=== PATIENT | female | born 1965 | race Caucasian/White ===

== ENCOUNTER 2021-11-01 03:09 | Inpatient (IN) | payer MEDICARE, MEDICAID ==
[~2021-11-01] VITALS: Ht 160 cm; Wt 52.6 kg
[2021-11-01] MEDS ORDERED: TRANEXAMIC ACID 1,000 MG/10 ML IV NR (04:00)
[2021-11-01 05:02] LABS: BASOPHILS % 0.4 % (0.0-2.0); EOSINOPHILS % 2.5 % (0.0-5.0); HEMATOCRIT. 24.6 % (36.0-48.0); HEMOGLOBIN. 8.1 g/dL (12.0-16.0); LYMPHOCYTES % 8.4 % (20.0-50.0); MEAN CORPUSCULAR HEMOGLOBIN 32.1 pg (28.0-32.0); MEAN CORPUSCULAR VOLUME 97.6 fL (81.0-99.0); MEAN PLATELET VOLUME 8.8 fl (7.4-10.4); MONOCYTES % 9.8 % (2.0-8.0); NEUTROPHILS % 78.9 % (40.0-76.0); PLATELET 118 x1000/uL (130-400); RED BLOOD CELL COUNT 2.52 mill/uL (4.2-5.4); RED CELL DISTRIBUTION WIDTH 15.6 % (11.6-14.6)
[2021-11-01 05:08] LABS: CHLORIDE 102 mEq/L (98-107)
[2021-11-01 05:21] LABS: INR 1.2; PARTIAL THROMBOPLASTIN TIME 25.5 sec (23.4-31.0)
[2021-11-01] MEDS ORDERED: ONDANSETRON HCL 4MG/2ML INJ IV PRN (10:15)
[2021-11-01 12:55] VITALS: BP 143/73
[2021-11-01] MEDS: SODIUM CHLORIDE 0.9% INJ 3ML FLUSH IVF SCH ×3 (15:14→22:31)
[2021-11-01 16:00] VITALS: BP 156/87
[2021-11-01 20:00] VITALS: BP 137/72
[2021-11-01] MEDS: EPOETIN ALFA-EPBX 4,000 UNIT/ML VIAL SUBCUT SCH (21:00)
[2021-11-02] VITALS (18 sets, daily range): BP systolic 121–163; BP diastolic 66–95
[2021-11-02 06:50] LABS: BASOPHILS % 0.5 % (0.0-2.0); EOSINOPHILS % 2.8 % (0.0-5.0); LYMPHOCYTES % 13.7 % (20.0-50.0); MEAN CORPUSCULAR HEMOGLOBIN 31.9 pg (28.0-32.0); MEAN PLATELET VOLUME 7.9 fl (7.4-10.4); MONOCYTES % 12.8 % (2.0-8.0); NEUTROPHILS % 70.2 % (40.0-76.0); PLATELET 102 x1000/uL (130-400); RED BLOOD CELL COUNT 1.88 mill/uL (4.2-5.4); RED CELL DISTRIBUTION WIDTH 15.5 % (11.6-14.6)
[2021-11-02 07:50] LABS: HEMATOCRIT. 18.4 % (36.0-48.0)
[2021-11-02 07:57] LABS: PHOSPHORUS 7.6 mg/dL (2.5-4.9)
[2021-11-02] MEDS: FOLIC ACID/VITAMIN B COMP W-C TABLET PO SCH (09:00)
[2021-11-02] MEDS: SODIUM CHLORIDE 0.9% INJ 3ML FLUSH IVF SCH ×2 (14:00→21:19)
[2021-11-02] MEDS: CLONIDINE 0.1MG TABLET PO PRN (20:39)
[2021-11-02 21:10] LABS: HEMOGLOBIN 8.8 g/dL (12.0-16.0)
[2021-11-02 21:59] LABS: HEPATITIS B SURFACE ANTIGEN NEGATIVE
[2021-11-03] VITALS (15 sets, daily range): BP systolic 146–182; BP diastolic 77–95
[2021-11-03] MEDS: SODIUM CHLORIDE 0.9% INJ 3ML FLUSH IVF SCH ×3 (06:00→22:00)
[2021-11-03] MEDS ORDERED: CEFAZOLIN 1000MG PREMIX 50 ML IV SCH (09:00)
[2021-11-03] MEDS: FOLIC ACID/VITAMIN B COMP W-C TABLET PO SCH (09:00)
[2021-11-03] MEDS ORDERED: FENTANYL CITRATE/PF 50MCG/ML 2ML VIAL ONE (09:28)
[2021-11-03] MEDS ORDERED: LIDOCAINE HCL/PF 1% 10 MG/ML 5ML VIAL ONE (09:31)
[2021-11-03] MEDS ORDERED: FENTANYL CITRATE/PF 50MCG/ML 2ML VIAL IV ONE (10:30)
[2021-11-03] MEDS: EPOETIN ALFA-EPBX 4,000 UNIT/ML VIAL SUBCUT SCH (21:18)
[2021-11-03] MEDS: DIPHENHYDRAMINE 50MG/ML VIAL IV PRN (21:18)
[2021-11-04] VITALS: BP 148/74
[2021-11-04] MEDS: DIPHENHYDRAMINE 50MG/ML VIAL IV PRN (00:32)
[2021-11-04 04:41] VITALS: BP 152/77
[2021-11-04 08:00] VITALS: BP 180/90
[2021-11-04] MEDS: FOLIC ACID/VITAMIN B COMP W-C TABLET PO SCH (08:19)
[2021-11-04] MEDS: CLONIDINE 0.1MG TABLET PO PRN (08:20)
[2021-11-04 12:00] VITALS: BP 159/84
[2021-11-04] MEDS: SEVELAMER CARBONATE 800 MG TABLET PO SCH ×2 (13:07→16:59)
[2021-11-04] MEDS: SODIUM CHLORIDE 0.9% INJ 3ML FLUSH IVF SCH ×2 (13:08→22:00)
[2021-11-04] MEDS: AMLODIPINE 10MG TABLET PO SCH (13:08)
[2021-11-04] MEDS: LISINOPRIL 40MG TABLET PO SCH (13:08)
[2021-11-04 16:00] VITALS: BP 133/75
[2021-11-04 20:00] VITALS: BP 161/66
[2021-11-05] MEDS: SODIUM CHLORIDE 0.9% INJ 3ML FLUSH IVF SCH ×3 (06:11→22:00)
[2021-11-05 08:00] VITALS: BP 135/77
[2021-11-05] MEDS: LISINOPRIL 40MG TABLET PO SCH (08:51)
[2021-11-05] MEDS: AMLODIPINE 10MG TABLET PO SCH (08:51)
[2021-11-05] MEDS: FOLIC ACID/VITAMIN B COMP W-C TABLET PO SCH (08:52)
[2021-11-05] MEDS: SEVELAMER CARBONATE 800 MG TABLET PO SCH (08:52)
[2021-11-05 12:00] VITALS: BP 147/82
[2021-11-05 16:00] VITALS: BP 137/77
[2021-11-05 20:00] VITALS: BP 142/72
[2021-11-05] MEDS ORDERED: LISI40TA13 PO (20:04)
[2021-11-05] MEDS ORDERED: AMLO10TA80 PO (20:05)
[2021-11-05] MEDS ORDERED: LABE200T9 PO (20:05)
[2021-11-05] MEDS ORDERED: OMEP20TA23 PO (20:06)
[2021-11-05] MEDS ORDERED: GABA-529 PO (20:06)
[2021-11-05] MEDS ORDERED: TRAZ-251 PO (20:07)
[2021-11-05] MEDS ORDERED: FERR210T PO (20:09)
[2021-11-05] MEDS ORDERED: SEVE800T8 PO (20:10)
[2021-11-05] MEDS ORDERED: FOLI1TAB87 PO (20:11)
[2021-11-06] VITALS (10 sets, daily range): BP systolic 130–190; BP diastolic 70–86
[2021-11-06 07:13] LABS: BASOPHILS % 0.7 % (0.0-2.0); EOSINOPHILS % 5.1 % (0.0-5.0); HEMATOCRIT. 25.5 % (36.0-48.0); HEMOGLOBIN. 8.4 g/dL (12.0-16.0); MEAN CORPUSCULAR HEMOGLOBIN 31.6 pg (28.0-32.0); MEAN CORPUSCULAR VOLUME 95.8 fL (81.0-99.0); MEAN PLATELET VOLUME 7.7 fl (7.4-10.4); MONOCYTES % 12.3 % (2.0-8.0); NEUTROPHILS % 68.9 % (40.0-76.0); PLATELET 132 x1000/uL (130-400); RED BLOOD CELL COUNT 2.66 mill/uL (4.2-5.4); RED CELL DISTRIBUTION WIDTH 17.4 % (11.6-14.6)
[2021-11-06 07:19] LABS: PHOSPHORUS 8.9 mg/dL (2.5-4.9)
[2021-11-06] MEDS: FOLIC ACID/VITAMIN B COMP W-C TABLET PO SCH (08:27)
[2021-11-06] MEDS: AMLODIPINE 10MG TABLET PO SCH (09:00)
[2021-11-06] MEDS: LISINOPRIL 40MG TABLET PO SCH (09:00)
[2021-11-06] MEDS: LANTHANUM CARBONATE 500MG CHEW TABLET PO SCH ×2 (12:45→17:55)
[2021-11-06] MEDS: CLONIDINE 0.1MG TABLET PO PRN (20:31)
[2021-11-06] MEDS: DIPHENHYDRAMINE 50MG/ML VIAL IV PRN (22:19)
[2021-11-06] MEDS: EPOETIN ALFA-EPBX 4,000 UNIT/ML VIAL SUBCUT SCH (22:20)
[2021-11-07 00:50] LABS: HEMATOCRIT 28.4 % (36.0-48.0); HEMOGLOBIN 9.5 g/dL (12.0-16.0)
[2021-11-07 01:56] LABS: INR 1.1; PROTHROMBIN TIME 11.7 sec (9.6-11.0)
[2021-11-07 04:00] VITALS: BP 167/71
[2021-11-07] MEDS: LANTHANUM CARBONATE 500MG CHEW TABLET PO SCH ×3 (07:00→17:30)
[2021-11-07 07:54] LABS: PHOSPHORUS 5.8 mg/dL (2.5-4.9)
[2021-11-07 08:00] VITALS: BP 136/76
[2021-11-07] MEDS: AMLODIPINE 10MG TABLET PO SCH (10:51)
[2021-11-07] MEDS: LISINOPRIL 40MG TABLET PO SCH (10:51)
[2021-11-07] MEDS: FOLIC ACID/VITAMIN B COMP W-C TABLET PO SCH (10:51)
[2021-11-07 12:00] VITALS: BP 174/78
[2021-11-07] MEDS ORDERED: PROPOFOL 200MG/20ML VIAL IV ONE ×2 (14:17→18:27)
[2021-11-07] MEDS ORDERED: FENTANYL CITRATE/PF 50MCG/ML 2ML VIAL ONE (14:17)
[2021-11-07] MEDS ORDERED: MIDAZOLAM HCL 2 MG/2 ML VIAL ONE (14:17)
[2021-11-07] MEDS ORDERED: PHENYLEPHRINE HCL 10 MG/ML 1ML (IV VIAL) IV ONE (14:18)
[2021-11-07] MEDS ORDERED: EPHEDRINE SULFATE 50MG/ML VIAL ONE (14:18)
[2021-11-07] MEDS ORDERED: LIDOCAINE HCL 1% 10 MG/ML 10ML VIAL ONE (14:18)
[2021-11-07] MEDS: SODIUM CHLORIDE 0.9% INJ 3ML FLUSH IVF SCH (14:41)
[2021-11-07] MEDS ORDERED: CEFAZOLIN SODIUM 1000MG/VIAL ONE (17:49)
[2021-11-07] MEDS ORDERED: ROCURONIUM BROMIDE 10MG/ML VIAL 5ML IV ONE (18:27)
[2021-11-07] MEDS ORDERED: HYDROMORPHONE HCL/PF 2MG/ML CPJ IV PRN ×2 (18:30→20:45)
[2021-11-07] MEDS ORDERED: LABETALOL 5MG/ML SYR 20 MG/4 ML SYRINGE IV PRN ×2 (18:30→20:45)
[2021-11-07] MEDS ORDERED: MEPERIDINE HCL/PF 25MG/ML CPJ IV PRN ×2 (18:30→20:45)
[2021-11-07] MEDS ORDERED: ONDANSETRON HCL 4MG/2ML INJ IV PRN ×2 (18:30→20:45)
[2021-11-07 22:04] LABS: HEMATOCRIT. 34.9 % (36.0-48.0); HEMOGLOBIN. 11.2 g/dL (12.0-16.0); MEAN CORPUSCULAR HEMOGLOBIN 30.6 pg (28.0-32.0); MEAN CORPUSCULAR VOLUME 95.6 fL (81.0-99.0); MEAN PLATELET VOLUME 6.9 fl (7.4-10.4); PLATELET 75 x1000/uL (130-400); RED BLOOD CELL COUNT 3.65 mill/uL (4.2-5.4); RED CELL DISTRIBUTION WIDTH 18.6 % (11.6-14.6)
[2021-11-07 22:11] LABS: BG BASE EXCESS -5.1 mmol/L (-2.0-2.0); BG CARBOXYHEMOGLOBIN 0.8 % (0.5-1.5); BG DEOXYHEMOGLOBIN 0.8 % (0.0-5.0); BG FRACTION INSPIRED OXYGEN 100; BG HCO3 ACT 22.3 mmol/L (22.0-26.0); BG METHEMOGLOBIN 0.3 % (0.0-1.5); BG OXYGEN SATURATION 99.2 % (92.0-98.5); BG OXYHEMOGLOBIN 98.1 % (94.0-97.0); BG SAMPLE SITE RIGHT RADIAL; BG TOTAL HEMOGLOBIN 11.3 g/dL (12.0-18.0); BG VENT MODE MASK - NRB
[2021-11-07 22:11] LABS: CHLORIDE 100 mEq/L (98-107)
[2021-11-07 22:32] LABS: PLATELET ESTIMATE DECREASED
[2021-11-08 00:05] VITALS: BP 105/58
[2021-11-08 01:05] VITALS: BP 126/73
[2021-11-08 05:50] LABS: HEMATOCRIT. 32.3 % (36.0-48.0); HEMOGLOBIN. 10.5 g/dL (12.0-16.0); MEAN PLATELET VOLUME 8.1 fl (7.4-10.4); PLATELET 62 x1000/uL (130-400); RED CELL DISTRIBUTION WIDTH 19.3 % (11.6-14.6)
[2021-11-08] MEDS: DEXTROSE 50% WATER 50ML SYRINGE IV PRN ×2 (07:04→10:16)
[2021-11-08] MEDS: LANTHANUM CARBONATE 500MG CHEW TABLET PO SCH ×3 (08:20→18:37)
[2021-11-08] MEDS: AMLODIPINE 10MG TABLET PO SCH (09:00)
[2021-11-08] MEDS: LISINOPRIL 40MG TABLET PO SCH (09:00)
[2021-11-08] MEDS ORDERED: ALBUMIN HUMAN 12.5G/250ML (5%) IV NR (10:15)
[2021-11-08] MEDS ORDERED: IPRATROPIUM/ALBUTEROL 0.5-3(2.5)MG/3ML NEB HHN PRN (10:15)
[2021-11-08] MEDS: FOLIC ACID/VITAMIN B COMP W-C TABLET PO SCH (10:16)
[2021-11-08] MEDS: DEXT 5%/0.9% NACL 1,000 ML IV SCH ×2 (10:25→21:00)
[2021-11-08] MEDS: PHENYLEPHRINE 50 MG in DEXT 5% WATER 245 ML IV PRN (12:22)
[2021-11-08] MEDS: SODIUM CHLORIDE 0.9% INJ 3ML FLUSH IVF SCH ×2 (13:38→21:00)
[2021-11-08 13:56] LABS: NUCLEATED RED BLOOD CELLS 1 /100 WBC; PLATELET ESTIMATE DECREASED
[2021-11-08 16:19] LABS: T4 FREE 1.51 ng/dL (0.76-1.46)
[2021-11-08] MEDS ORDERED: VANCOMYCIN 1G PREMIX 200 ML IV NR (18:30)
[2021-11-08 20:05] VITALS: BP 88/50
[2021-11-08 21:05] VITALS: BP 102/58
[2021-11-08] MEDS: PIPERACILLIN/TAZOBACTAM 3.375 G in DEXTROSE 5% WATER 50 ML IV SCH (21:30)
[2021-11-08 22:05] VITALS: BP 96/57
[2021-11-08 23:05] VITALS: BP 97/56
[2021-11-09] VITALS (67 sets, daily range): BP systolic 87–134; BP diastolic 43–76
[2021-11-09] MEDS: PHENYLEPHRINE 50 MG in DEXT 5% WATER 245 ML IV PRN ×2 (00:58→18:43)
[2021-11-09] MEDS ORDERED: NALOXONE HCL 0.4MG/ML VIAL IV PRN (04:15)
[2021-11-09] MEDS: SODIUM CHLORIDE 0.9% INJ 3ML FLUSH IVF SCH ×3 (06:00→21:10)
[2021-11-09 06:01] LABS: HEMATOCRIT. 26.9 % (36.0-48.0); HEMOGLOBIN. 8.6 g/dL (12.0-16.0); MEAN CORPUSCULAR HEMOGLOBIN 30.6 pg (28.0-32.0); MEAN CORPUSCULAR VOLUME 95.4 fL (81.0-99.0); MEAN PLATELET VOLUME 9.2 fl (7.4-10.4); PLATELET 53 x1000/uL (130-400); RED BLOOD CELL COUNT 2.82 mill/uL (4.2-5.4); RED CELL DISTRIBUTION WIDTH 19.3 % (11.6-14.6)
[2021-11-09] MEDS: DEXT 5%/0.9% NACL 1,000 ML IV SCH ×2 (06:16→14:59)
[2021-11-09] MEDS: HYDROCODONE/ACETAMINOPHEN 5/325MG TABLET PO PRN (06:18)
[2021-11-09 06:52] LABS: CHLORIDE 105 mEq/L (98-107)
[2021-11-09] MEDS: FOLIC ACID/VITAMIN B COMP W-C TABLET PO SCH (08:59)
[2021-11-09] MEDS: AMLODIPINE 10MG TABLET PO SCH (09:00)
[2021-11-09] MEDS: LISINOPRIL 40MG TABLET PO SCH (09:00)
[2021-11-09 09:03] LABS: BG CARBOXYHEMOGLOBIN 0.9 % (0.5-1.5); BG DEOXYHEMOGLOBIN 1.1 % (0.0-5.0); BG FRACTION INSPIRED OXYGEN 36; BG HCO3 ACT 21.6 mmol/L (22.0-26.0); BG OXYGEN SATURATION 98.9 % (92.0-98.5); BG PCO2 46.6 mmHg (35.0-45.0); BG PH 7.283 (7.350-7.450); BG SAMPLE SITE RIGHT RADIAL; BG TOTAL HEMOGLOBIN 9.6 g/dL (12.0-18.0); BG VENT MODE NASAL CANNULA
[2021-11-09] MEDS: PIPERACILLIN/TAZOBACTAM 3.375 G in DEXTROSE 5% WATER 50 ML IV SCH ×2 (09:04→21:09)
[2021-11-09] MEDS: LANTHANUM CARBONATE 500MG CHEW TABLET PO SCH ×3 (10:46→17:32)
[2021-11-09 10:49] LABS: PLATELET ESTIMATE DECREASED
[2021-11-09 16:41] LABS: BG BASE EXCESS -2.9 mmol/L (-2.0-2.0); BG CARBOXYHEMOGLOBIN 0.4 % (0.5-1.5); BG FRACTION INSPIRED OXYGEN 35; BG HCO3 ACT 23.5 mmol/L (22.0-26.0); BG METHEMOGLOBIN 0.4 % (0.0-1.5); BG OXYHEMOGLOBIN 98.2 % (94.0-97.0); BG PCO2 48.7 mmHg (35.0-45.0); BG PH 7.302 (7.350-7.450); BG PO2 182.8 mmHg (75.0-100.0); BG SAMPLE SITE RIGHT RADIAL; BG TOTAL HEMOGLOBIN 9.4 g/dL (12.0-18.0); BG VENT MODE MASK - BIPAP
[2021-11-09] MEDS: EPOETIN ALFA-EPBX 4,000 UNIT/ML VIAL SUBCUT SCH (21:09)
[2021-11-10] VITALS (86 sets, daily range): BP systolic 106–161; BP diastolic 37–135
[2021-11-10] MEDS: DEXT 5%/0.9% NACL 1,000 ML IV SCH ×3 (02:15→21:09)
[2021-11-10] MEDS: SODIUM CHLORIDE 0.9% INJ 3ML FLUSH IVF SCH ×3 (05:57→21:10)
[2021-11-10 06:37] LABS: HEMATOCRIT. 26.1 % (36.0-48.0); HEMOGLOBIN. 8.5 g/dL (12.0-16.0); MEAN CORPUSCULAR HEMOGLOBIN 30.9 pg (28.0-32.0); MEAN CORPUSCULAR VOLUME 95.2 fL (81.0-99.0); RED BLOOD CELL COUNT 2.74 mill/uL (4.2-5.4); RED CELL DISTRIBUTION WIDTH 19.2 % (11.6-14.6)
[2021-11-10 07:06] LABS: PHOSPHORUS 5.7 mg/dL (2.5-4.9)
[2021-11-10 07:13] LABS: PLATELET 49 x1000/uL (130-400)
[2021-11-10 07:31] LABS: PLATELET ESTIMATE DECREASED
[2021-11-10] MEDS: FOLIC ACID/VITAMIN B COMP W-C TABLET PO SCH (08:12)
[2021-11-10] MEDS: PIPERACILLIN/TAZOBACTAM 3.375 G in DEXTROSE 5% WATER 50 ML IV SCH ×2 (08:12→21:08)
[2021-11-10] MEDS: LANTHANUM CARBONATE 500MG CHEW TABLET PO SCH ×3 (08:12→17:40)
[2021-11-10 11:20] LABS: BG BASE EXCESS -2.8 mmol/L (-2.0-2.0); BG CARBOXYHEMOGLOBIN 0.2 % (0.5-1.5); BG DEOXYHEMOGLOBIN 1.4 % (0.0-5.0); BG FRACTION INSPIRED OXYGEN 28; BG HCO3 ACT 22.5 mmol/L (22.0-26.0); BG METHEMOGLOBIN 0.1 % (0.0-1.5); BG OXYGEN SATURATION 98.6 % (92.0-98.5); BG OXYHEMOGLOBIN 98.3 % (94.0-97.0); BG PH 7.357 (7.350-7.450); BG PO2 139.4 mmHg (75.0-100.0); BG SAMPLE SITE RIGHT RADIAL; BG TOTAL HEMOGLOBIN 9.1 g/dL (12.0-18.0); BG VENT MODE MASK - BIPAP
[2021-11-10] MEDS ORDERED: VANCOMYCIN 500MG PREMIX 100 ML IV SCH (14:00)
[2021-11-10] MEDS: PHENYLEPHRINE 50 MG in DEXT 5% WATER 245 ML IV PRN (19:46)
[2021-11-10] MEDS: HYDROCODONE/ACETAMINOPHEN 5/325MG TABLET PO PRN (21:08)
[2021-11-10] MEDS: DIPHENHYDRAMINE 50MG/ML VIAL IV PRN (21:08)
[2021-11-11] VITALS (78 sets, daily range): BP systolic 102–197; BP diastolic 59–117
[2021-11-11] MEDS: SODIUM CHLORIDE 0.9% INJ 3ML FLUSH IVF SCH ×3 (06:25→21:48)
[2021-11-11] MEDS: PIPERACILLIN/TAZOBACTAM 3.375 G in DEXTROSE 5% WATER 50 ML IV SCH (09:39)
[2021-11-11] MEDS: LANTHANUM CARBONATE 500MG CHEW TABLET PO SCH ×3 (09:40→18:47)
[2021-11-11] MEDS: DEXT 5%/0.9% NACL 1,000 ML IV SCH ×2 (09:41→18:15)
[2021-11-11] MEDS: FOLIC ACID/VITAMIN B COMP W-C TABLET PO SCH (09:42)
[2021-11-11 11:10] LABS: HEMATOCRIT. 29.4 % (36.0-48.0); HEMOGLOBIN. 9.2 g/dL (12.0-16.0); MEAN CORPUSCULAR HEMOGLOBIN 30.2 pg (28.0-32.0); MEAN CORPUSCULAR VOLUME 96.2 fL (81.0-99.0); MEAN PLATELET VOLUME 9.1 fl (7.4-10.4); PLATELET 52 x1000/uL (130-400); RED BLOOD CELL COUNT 3.06 mill/uL (4.2-5.4); RED CELL DISTRIBUTION WIDTH 18.6 % (11.6-14.6)
[2021-11-11 11:16] LABS: CHLORIDE 103 mEq/L (98-107)
[2021-11-11 11:17] LABS: PROTHROMBIN TIME 11.2 sec (9.6-11.0)
[2021-11-11] MEDS: CEFEPIME 500 MG in DEXTROSE 5% WATER 50 ML IV SCH (11:45)
[2021-11-11 12:44] LABS: PLATELET ESTIMATE DECREASED
[2021-11-11] MEDS: EPOETIN ALFA-EPBX 4,000 UNIT/ML VIAL SUBCUT SCH (20:23)
[2021-11-11] MEDS: CLONIDINE 0.1MG TABLET PO PRN (20:57)
[2021-11-11] MEDS ORDERED: HYDRALAZINE 20MG/ML VIAL IV PRN (22:00)
[2021-11-11] MEDS: LISINOPRIL 20MG TABLET PO SCH (22:15)
[2021-11-12] VITALS: BP 137/74
[2021-11-12] MEDS: SODIUM CHLORIDE 0.9% INJ 3ML FLUSH IVF SCH ×3 (05:24→22:00)
[2021-11-12 08:00] VITALS: BP 147/76
[2021-11-12] MEDS: FOLIC ACID/VITAMIN B COMP W-C TABLET PO SCH (09:35)
[2021-11-12] MEDS: LISINOPRIL 20MG TABLET PO SCH ×2 (09:36→21:09)
[2021-11-12] MEDS: AMLODIPINE 10MG TABLET PO SCH (09:36)
[2021-11-12] MEDS: LANTHANUM CARBONATE 500MG CHEW TABLET PO SCH ×3 (10:53→19:01)
[2021-11-12 12:00] VITALS: BP 132/90
[2021-11-12] MEDS: CEFEPIME 500 MG in DEXTROSE 5% WATER 50 ML IV SCH (13:33)
[2021-11-12] MEDS: DEXT 5%/0.9% NACL 1,000 ML IV SCH (14:06)
[2021-11-12 16:00] VITALS: BP 154/77
[2021-11-12 20:00] VITALS: BP 144/80
[2021-11-13] VITALS: BP 145/83
[2021-11-13 04:00] VITALS: BP 155/80
[2021-11-13] MEDS: SODIUM CHLORIDE 0.9% INJ 3ML FLUSH IVF SCH ×2 (05:58→14:30)
[2021-11-13 07:15] LABS: BASOPHILS % 0.6 % (0.0-2.0); EOSINOPHILS % 3.3 % (0.0-5.0); LYMPHOCYTES % 12.1 % (20.0-50.0); MEAN CORPUSCULAR HEMOGLOBIN 31.1 pg (28.0-32.0); MEAN CORPUSCULAR VOLUME 93.2 fL (81.0-99.0); MEAN PLATELET VOLUME 8.9 fl (7.4-10.4); MONOCYTES % 11.1 % (2.0-8.0); NEUTROPHILS % 72.9 % (40.0-76.0); PLATELET 63 x1000/uL (130-400); RED BLOOD CELL COUNT 2.57 mill/uL (4.2-5.4); RED CELL DISTRIBUTION WIDTH 17.9 % (11.6-14.6)
[2021-11-13 08:00] VITALS: BP 190/92
[2021-11-13] MEDS: LANTHANUM CARBONATE 500MG CHEW TABLET PO SCH ×2 (08:47→14:34)
[2021-11-13] MEDS: AMLODIPINE 10MG TABLET PO SCH (08:47)
[2021-11-13] MEDS: LISINOPRIL 20MG TABLET PO SCH (08:47)
[2021-11-13] MEDS: FOLIC ACID/VITAMIN B COMP W-C TABLET PO SCH (08:47)
[2021-11-13 12:00] VITALS: BP 150/81
[2021-11-13] MEDS ORDERED: VANCOMYCIN 750MG PMX (XELLIA) 150 ML IV SCH (14:00)
[2021-11-13] MEDS: CEFEPIME 500 MG in DEXTROSE 5% WATER 50 ML IV SCH (14:17)
[2021-11-13 14:58] VITALS: BP 143/80
[2021-11-13 16:00] VITALS: BP 143/78
== END 2021-11-13 18:03 | disposition home or self-care (01) | DRG 264 ==
LOC: ER 03:43 → 4WST 07:03 → ENRESERV 11:52 → CVICU 11-07 23:58 → MICUSO 11-11 23:50 → 6WST 11-11 23:51
PROVIDERS: ADMIT Internal Medicine; ATTEND Internal Medicine
PROC: 0XQ7XZZ Repair Left Upper Extremity, External Approach (ICD-10-PCS; 2021-11-01)
PROC: 30233N1 Transfusion of Nonautologous Red Blood Cells into Peripheral Vein, Percutaneous Approach (ICD-10-PCS; 2021-11-02)
PROC: 0JH63XZ Insertion of Tunneled Vascular Access Device into Chest Subcutaneous Tissue and Fascia, Percutaneous Approach (ICD-10-PCS; 2021-11-03)
PROC: 02HV33Z Insertion of Infusion Device into Superior Vena Cava, Percutaneous Approach (ICD-10-PCS; 2021-11-03)
PROC: B5181ZA Fluoroscopy of Superior Vena Cava using Low Osmolar Contrast, Guidance (ICD-10-PCS; 2021-11-03)
PROC: B548ZZA Ultrasonography of Superior Vena Cava, Guidance (ICD-10-PCS; 2021-11-03)
PROC: 5A1D70Z Performance of Urinary Filtration, Intermittent, Less than 6 Hours Per Day (ICD-10-PCS; 2021-11-03)
PROC: 5A1D70Z Performance of Urinary Filtration, Intermittent, Less than 6 Hours Per Day (ICD-10-PCS; 2021-11-06)
PROC: 03180JD Bypass Left Brachial Artery to Upper Arm Vein with Synthetic Substitute, Open Approach (ICD-10-PCS; principal; 2021-11-07)
PROC: 02HV33Z Insertion of Infusion Device into Superior Vena Cava, Percutaneous Approach (ICD-10-PCS; 2021-11-08)
PROC: B548ZZA Ultrasonography of Superior Vena Cava, Guidance (ICD-10-PCS; 2021-11-08)
PROC: 5A1D70Z Performance of Urinary Filtration, Intermittent, Less than 6 Hours Per Day (ICD-10-PCS; 2021-11-08)
PROC: 5A09457 Assistance with Respiratory Ventilation, 24-96 Consecutive Hours, Continuous Positive Airway Pressure (ICD-10-PCS; 2021-11-10)
PROC: 02HV33Z Insertion of Infusion Device into Superior Vena Cava, Percutaneous Approach (ICD-10-PCS; 2021-11-11)
PROC: B548ZZA Ultrasonography of Superior Vena Cava, Guidance (ICD-10-PCS; 2021-11-11)
PROC: B5181ZA Fluoroscopy of Superior Vena Cava using Low Osmolar Contrast, Guidance (ICD-10-PCS; 2021-11-11)
DX: T82.510A Breakdown (mechanical) of surgically created arteriovenous fistula, initial encounter (principal); J96.01 Acute respiratory failure with hypoxia; N18.6 End stage renal disease; M31.30 Wegener's granulomatosis without renal involvement; I12.0 Hypertensive chronic kidney disease with stage 5 chronic kidney disease or end stage renal disease; J81.1 Chronic pulmonary edema; S41.112A Laceration without foreign body of left upper arm, initial encounter; D63.8 Anemia in other chronic diseases classified elsewhere; T82.838A Hemorrhage due to vascular prosthetic devices, implants and grafts, initial encounter; E83.39 Other disorders of phosphorus metabolism; Z20.822 Contact with and (suspected) exposure to COVID-19; L29.9 Pruritus, unspecified; I95.9 Hypotension, unspecified; E11.22 Type 2 diabetes mellitus with diabetic chronic kidney disease; Y84.1 Kidney dialysis as the cause of abnormal reaction of the patient, or of later complication, without mention of misadventure at the time of the procedure; E11.649 Type 2 diabetes mellitus with hypoglycemia without coma; D69.6 Thrombocytopenia, unspecified; Y71.2 Prosthetic and other implants, materials and accessory cardiovascular devices associated with adverse incidents; Z99.2 Dependence on renal dialysis; Z82.49 Family history of ischemic heart disease and other diseases of the circulatory system; K21.9 Gastro-esophageal reflux disease without esophagitis
CPT/HCPCS: 36415; 36558; 36573; 36600; 71045; 76937; 77001; 80048; 80053; 80069; 80202; 82375; 82805; 82962; 84145; 84439; 84443; 85014; 85018; 85025; 85049; 85384; 86705; 86709; 86803; 86850; 86900; 86920; 87340; 87426; 93005; 94660; 99152; 99153; 99285; C1725; C1750; C1768; C1769; J0360; J0690; J0692; J0885; J1170; J1200; J2175; J2250; J2370; J2405; J2543; J2704; J3010; J3370; J3490; J7042; J7060; P9016; P9041; G0500

== ENCOUNTER 2021-12-20 22:53 | Emergency (ER) | payer MEDICARE, MEDICAID ==
[~2021-12-20] VITALS: Ht 157.5 cm; Wt 66.0 kg
[~2021-12-20 22:53] MED LIST: AMLO10TA80 PO; FERR210T PO; FOLI1TAB87 PO; GABA-529 PO; LABE200T9 PO; LISI40TA13 PO; OMEP20TA23 PO; SEVE800T8 PO; TRAZ-251 PO
[2021-12-21] MEDS ORDERED: ACETAMINOPHEN WITH CODEINE 300/30MG TABLET PO ONE (01:15)
[2021-12-21 01:42] LABS: BASOPHILS % 0.8 % (0.0-2.0); EOSINOPHILS % 3.1 % (0.0-5.0); HEMATOCRIT. 29.1 % (36.0-48.0); HEMOGLOBIN. 9.5 g/dL (12.0-16.0); MEAN CORPUSCULAR HEMOGLOBIN 32.9 pg (28.0-32.0); MEAN PLATELET VOLUME 7.6 fl (7.4-10.4); MONOCYTES % 8.1 % (2.0-8.0); PLATELET 124 x1000/uL (130-400); RED BLOOD CELL COUNT 2.88 mill/uL (4.2-5.4); RED CELL DISTRIBUTION WIDTH 18.4 % (11.6-14.6)
[2021-12-21 01:46] LABS: CHLORIDE 99 mEq/L (98-107)
[2021-12-21] MEDS ORDERED: ACETAMINOPHEN 500MG TABLET PO ONE (05:15)
[2021-12-21] MEDS ORDERED: DESMOPRESSIN ACETATE 4MCG/ML AMP IV ONE (07:00)
[2021-12-21] MEDS ORDERED: IOHEXOL-350 100 ML BOTTLE ONE (07:06)
[2021-12-21] MEDS ORDERED: DESMOPRESSIN ACETATE 20 MCG in SODIUM CHLORIDE 0.9% 50 ML IV SCH (08:30)
[2021-12-21 09:03] LABS: BASOPHILS % 0.9 % (0.0-2.0); EOSINOPHILS % 3.4 % (0.0-5.0); HEMATOCRIT. 29.7 % (36.0-48.0); HEMOGLOBIN. 9.5 g/dL (12.0-16.0); LYMPHOCYTES % 12.6 % (20.0-50.0); MEAN CORPUSCULAR HEMOGLOBIN 32.6 pg (28.0-32.0); MEAN CORPUSCULAR VOLUME 101.6 fL (81.0-99.0); MEAN PLATELET VOLUME 7.7 fl (7.4-10.4); MONOCYTES % 9.3 % (2.0-8.0); NEUTROPHILS % 73.8 % (40.0-76.0); PLATELET 115 x1000/uL (130-400); RED BLOOD CELL COUNT 2.92 mill/uL (4.2-5.4); RED CELL DISTRIBUTION WIDTH 18.5 % (11.6-14.6)
[2021-12-21 09:14] LABS: INR 1.2; PROTHROMBIN TIME 12.8 sec (9.6-11.0)
[2021-12-21 09:51] LABS: CHLORIDE 96 mEq/L (98-107)
[2021-12-21 10:04] LABS: T4 FREE 1.47 ng/dL (0.76-1.46); TOTAL IRON BINDING CAPACITY 198 ug/dL (250-450)
[2021-12-21 10:33] LABS: VITAMIN B12 SERUM 1078 pg/mL (211-911)
[2021-12-21] MEDS ORDERED: OXYCODONE HCL/ACETAMINOPHEN 5/325MG TABLET PO ONE (12:45)
[2021-12-21 13:43] VITALS: BP 169/89
[2021-12-21 14:52] LABS: BASOPHILS % 0.8 % (0.0-2.0); HEMOGLOBIN. 10.1 g/dL (12.0-16.0); LYMPHOCYTES % 12.2 % (20.0-50.0); MEAN CORPUSCULAR HEMOGLOBIN 32.4 pg (28.0-32.0); MEAN CORPUSCULAR VOLUME 102.2 fL (81.0-99.0); MEAN PLATELET VOLUME 7.7 fl (7.4-10.4); MONOCYTES % 9.6 % (2.0-8.0); NEUTROPHILS % 75.4 % (40.0-76.0); PLATELET 113 x1000/uL (130-400); RED BLOOD CELL COUNT 3.13 mill/uL (4.2-5.4); RED CELL DISTRIBUTION WIDTH 18.4 % (11.6-14.6)
== END 2021-12-21 15:11 | disposition short-term general hospital (02) ==
LOC: ER 22:53 → EDBEDREQ 12-21 05:20 → EDBEDREQTM 12-21 05:20 → CANBEDREQ 12-21 08:23 → ER 12-21 15:11
DX: S75.001A Unspecified injury of femoral artery, right leg, initial encounter (principal); I12.0 Hypertensive chronic kidney disease with stage 5 chronic kidney disease or end stage renal disease; N18.6 End stage renal disease; Z99.2 Dependence on renal dialysis; Z79.01 Long term (current) use of anticoagulants; X58.XXXA Exposure to other specified factors, initial encounter; Y93.89 Activity, other specified; Y92.018 Other place in single-family (private) house as the place of occurrence of the external cause
CPT/HCPCS: 36415; 71045; 73700; 73706; 80053; 82607; 83550; 84439; 84443; 85025; 85610; 86850; 96365; 99285; J2597; Q9967

== ENCOUNTER 2022-03-19 16:25 | Inpatient (IN) | payer MEDICARE, MEDICAID ==
[~2022-03-19] VITALS: Ht 154.9 cm; Wt 57.2 kg
[2022-03-19 18:55] VITALS: BP 113/73
[2022-03-19 20:00] VITALS: BP_SYST 128; BP_SYST 146; BP_DIAS 72; BP_DIAS 76
[2022-03-19] MEDS ORDERED: IPRATROPIUM/ALBUTEROL 0.5-3(2.5)MG/3ML NEB NEB SCH (20:45)
[2022-03-19] MEDS ORDERED: IPRATROPIUM/ALBUTEROL 0.5-3(2.5)MG/3ML NEB NEB PRN (20:45)
[2022-03-19] MEDS ORDERED: GUAIFENESIN 200MG/10ML SUGAR FREE UDC PO PRN (20:45)
[2022-03-19] MEDS: DEXT 5%/0.45% NACL 1000ML 1,000 ML IV SCH (20:45)
[2022-03-19] MEDS ORDERED: DOCUSATE SODIUM 100MG CAPSULE PO PRN (20:45)
[2022-03-19] MEDS ORDERED: ACETAMINOPHEN 650MG/20.3ML UDC GT PRN ×2 (20:45)
[2022-03-19] MEDS ORDERED: MAGNESIUM/ALUMINUM HYDROXIDE/SIMETHICONE 30ML UDC PO PRN (20:45)
[2022-03-19] MEDS ORDERED: ONDANSETRON HCL 4MG/2ML INJ IV PRN (20:45)
[2022-03-19] MEDS ORDERED: HYDROCODONE/ACETAMINOPHEN 5/325MG TABLET PO PRN (20:45)
[2022-03-19] MEDS ORDERED: CLONIDINE 0.1MG TABLET PO PRN (20:45)
[2022-03-19] MEDS ORDERED: LORAZEPAM 2MG/ML CPJ IV PRN (20:45)
[2022-03-19] MEDS ORDERED: ALBUTEROL (0.083%) 2.5MG/3ML NEB HHN PRN (21:30)
[2022-03-19] MEDS ORDERED: NALOXONE HCL 0.4MG/ML VIAL IV PRN (21:30)
[2022-03-19] MEDS ORDERED: IPRATROPIUM BROMIDE (0.02%) 0.5MG/2.5ML NEB HHN PRN (21:30)
[2022-03-19 22:00] VITALS: BP 153/83
[2022-03-19 22:21] LABS: CREATINE KINASE 90 IU/L (26-192)
[2022-03-20] VITALS (22 sets, daily range): BP systolic 131–174; BP diastolic 70–96
[2022-03-20 06:00] LABS: BASOPHILS % 0.4 % (0.0-2.0); EOSINOPHILS % 6.7 % (0.0-5.0); LYMPHOCYTES % 7.5 % (20.0-50.0); MEAN CORPUSCULAR HEMOGLOBIN 31.4 pg (28.0-32.0); MEAN CORPUSCULAR VOLUME 93.7 fL (81.0-99.0); MEAN PLATELET VOLUME 7.3 fl (7.4-10.4); MONOCYTES % 8.7 % (2.0-8.0); NEUTROPHILS % 76.7 % (40.0-76.0); PLATELET 164 x1000/uL (130-400); RED BLOOD CELL COUNT 2.14 mill/uL (4.2-5.4); RED CELL DISTRIBUTION WIDTH 18.4 % (11.6-14.6)
[2022-03-20 06:44] LABS: HEMATOCRIT. 20.1 % (36.0-48.0); HEMOGLOBIN. 6.7 g/dL (12.0-16.0)
[2022-03-20] MEDS: IPRATROPIUM BROMIDE (0.02%) 0.5MG/2.5ML NEB HHN SCH ×3 (08:53→20:07)
[2022-03-20] MEDS: ALBUTEROL (0.083%) 2.5MG/3ML NEB HHN SCH ×3 (08:54→20:08)
[2022-03-20] MEDS: LISINOPRIL 20MG TABLET PO SCH (09:00)
[2022-03-20] MEDS: DEXT 5%/0.45% NACL 1000ML 1,000 ML IV SCH ×2 (10:05→23:25)
[2022-03-20 10:41] LABS: CHLORIDE 102 mEq/L (98-107)
[2022-03-20 11:13] LABS: HDL CHOLESTEROL 51 mg/dL (40-59); LDL CHOLESTEROL 58 mg/dL (5-100)
[2022-03-20] MEDS: CEFEPIME 1,000 MG in DEXTROSE 5% WATER 50 ML IV SCH (19:07)
[2022-03-20] MEDS: SEVELAMER CARBONATE 800 MG TABLET PO SCH (19:07)
[2022-03-20] MEDS: OMEPRAZOLE 20MG CAPSULE EXTENDED RELEASE PO SCH (19:07)
[2022-03-20] MEDS: AMLODIPINE 5MG TABLET PO SCH (20:52)
[2022-03-20] MEDS: TRAZODONE HCL 50MG TABLET PO SCH (20:52)
[2022-03-20] MEDS ORDERED: IOHEXOL-350 100 ML BOTTLE ONE (23:13)
[2022-03-21] VITALS (12 sets, daily range): BP systolic 143–169; BP diastolic 74–90
[2022-03-21] MEDS: IPRATROPIUM BROMIDE (0.02%) 0.5MG/2.5ML NEB HHN SCH ×3 (01:56→20:23)
[2022-03-21] MEDS: ALBUTEROL (0.083%) 2.5MG/3ML NEB HHN SCH ×3 (01:56→20:23)
[2022-03-21 07:06] LABS: HEMATOCRIT. 28.1 % (36.0-48.0); HEMOGLOBIN. 9.9 g/dL (12.0-16.0); MEAN CORPUSCULAR HEMOGLOBIN 31.9 pg (28.0-32.0); MEAN PLATELET VOLUME 7.6 fl (7.4-10.4); PLATELET 155 x1000/uL (130-400); RED BLOOD CELL COUNT 3.09 mill/uL (4.2-5.4); RED CELL DISTRIBUTION WIDTH 16.3 % (11.6-14.6)
[2022-03-21] MEDS: SEVELAMER CARBONATE 800 MG TABLET PO SCH ×5 (08:00→17:40)
[2022-03-21 08:19] LABS: FERRITIN 1523 ng/mL (10-291)
[2022-03-21 08:57] LABS: BG BASE EXCESS -0.3 mmol/L (-2.0-2.0); BG CARBOXYHEMOGLOBIN 0.1 % (0.5-1.5); BG DEOXYHEMOGLOBIN 1.4 % (0.0-5.0); BG FRACTION INSPIRED OXYGEN 40; BG HCO3 ACT 23.3 mmol/L (22.0-26.0); BG METHEMOGLOBIN 0.3 % (0.0-1.5); BG OXYGEN SATURATION 98.6 % (92.0-98.5); BG OXYHEMOGLOBIN 98.2 % (94.0-97.0); BG PCO2 34.5 mmHg (35.0-45.0); BG PH 7.448 (7.350-7.450); BG PO2 137.4 mmHg (75.0-100.0); BG SAMPLE SITE RIGHT RADIAL; BG TOTAL HEMOGLOBIN 10.5 g/dL (12.0-18.0); BG VENT MODE VENT - AC
[2022-03-21 09:43] LABS: PHOSPHORUS 5.6 mg/dL (2.5-4.9)
[2022-03-21] MEDS ORDERED: BACITRACIN 15GM TUBE TOP ONE (10:12)
[2022-03-21] MEDS ORDERED: LIDOCAINE HCL 1% 10 MG/ML 10ML VIAL ONE (10:12)
[2022-03-21] MEDS ORDERED: THROMBIN (BOVINE) 5000 UNITS/VIAL TOP ONE (10:12)
[2022-03-21] MEDS ORDERED: POLYMYXIN B SULFATE 500000 UNITS/VIAL ONE (10:12)
[2022-03-21] MEDS ORDERED: BUPIVACAINE HCL/PF 0.5% (5MG/ML) 10ML ONE ×2 (10:12→10:14)
[2022-03-21] MEDS ORDERED: LIDOCAINE HCL 1% 20ML VIAL (Pyxis) INJ ONE (10:13)
[2022-03-21] MEDS ORDERED: HEPARIN SODIUM 1,000 UNIT/1ML VIAL IV ONE (10:17)
[2022-03-21] MEDS: FOLIC ACID/VITAMIN B COMP W-C TABLET PO SCH (10:32)
[2022-03-21] MEDS: AMLODIPINE 5MG TABLET PO SCH ×2 (10:33→20:12)
[2022-03-21] MEDS: OMEPRAZOLE 20MG CAPSULE EXTENDED RELEASE PO SCH (10:33)
[2022-03-21] MEDS: GABAPENTIN 100MG CAPSULE PO SCH (10:34)
[2022-03-21] MEDS: LISINOPRIL 20MG TABLET PO SCH (10:35)
[2022-03-21] MEDS ORDERED: VECURONIUM BROMIDE 10 MG/VIAL IV ONE (11:58)
[2022-03-21 12:32] LABS: PLATELET ESTIMATE NORMAL
[2022-03-21] MEDS ORDERED: MORPHINE SULFATE 4 MG/ML CPJ (NOT FOR IM USE) IV PRN (12:45)
[2022-03-21] MEDS ORDERED: MIDAZOLAM HCL 2 MG/2 ML VIAL ONE (12:45)
[2022-03-21] MEDS ORDERED: CEFAZOLIN SODIUM 1000MG/VIAL ONE (12:51)
[2022-03-21] MEDS ORDERED: HYDROMORPHONE HCL/PF 2MG/ML CPJ IV PRN (13:15)
[2022-03-21] MEDS ORDERED: ONDANSETRON HCL 4MG/2ML INJ IV PRN (13:15)
[2022-03-21] MEDS ORDERED: MEPERIDINE HCL/PF 25MG/ML CPJ IV PRN (13:15)
[2022-03-21] MEDS ORDERED: LABETALOL 5MG/ML SYR 20 MG/4 ML SYRINGE IV PRN (13:15)
[2022-03-21] MEDS: DEXT 5%/0.45% NACL 1000ML 1,000 ML IV SCH (15:44)
[2022-03-21] MEDS ORDERED: DEXTROSE 50% WATER 50ML SYRINGE IV PRN (16:00)
[2022-03-21 16:40] LABS: VITAMIN B12 SERUM 1002 pg/mL (211-911)
[2022-03-21] MEDS: CEFEPIME 1,000 MG in DEXTROSE 5% WATER 50 ML IV SCH (17:00)
[2022-03-21] MEDS: TRAZODONE HCL 50MG TABLET PO SCH (20:12)
[2022-03-21] MEDS: HYDRALAZINE 20MG/ML VIAL IV PRN (20:41)
[2022-03-21] MEDS: MORPHINE SULFATE 2 MG/ML CPJ (NOT FOR IM USE) IV PRN (20:48)
[2022-03-22] VITALS (15 sets, daily range): BP systolic 117–170; BP diastolic 71–88
[2022-03-22] MEDS: MORPHINE SULFATE 2 MG/ML CPJ (NOT FOR IM USE) IV PRN (01:19)
[2022-03-22] MEDS: ALBUTEROL (0.083%) 2.5MG/3ML NEB HHN SCH ×4 (02:03→20:48)
[2022-03-22] MEDS: IPRATROPIUM BROMIDE (0.02%) 0.5MG/2.5ML NEB HHN SCH ×4 (02:03→20:48)
[2022-03-22] MEDS: DEXT 5%/0.45% NACL 1000ML 1,000 ML IV SCH (03:46)
[2022-03-22] MEDS: HYDRALAZINE 20MG/ML VIAL IV PRN (04:19)
[2022-03-22 06:15] LABS: BASOPHILS % 0.5 % (0.0-2.0); EOSINOPHILS % 10.3 % (0.0-5.0); HEMATOCRIT. 29.4 % (36.0-48.0); HEMOGLOBIN. 9.9 g/dL (12.0-16.0); LYMPHOCYTES % 7.3 % (20.0-50.0); MEAN CORPUSCULAR HEMOGLOBIN 31.5 pg (28.0-32.0); MEAN CORPUSCULAR VOLUME 93.4 fL (81.0-99.0); MEAN PLATELET VOLUME 7.8 fl (7.4-10.4); MONOCYTES % 8.8 % (2.0-8.0); NEUTROPHILS % 73.1 % (40.0-76.0); PLATELET 155 x1000/uL (130-400); RED BLOOD CELL COUNT 3.15 mill/uL (4.2-5.4); RED CELL DISTRIBUTION WIDTH 16.8 % (11.6-14.6)
[2022-03-22 06:39] LABS: PHOSPHORUS 7.3 mg/dL (2.5-4.9)
[2022-03-22] MEDS: SEVELAMER CARBONATE 800 MG TABLET PO SCH ×3 (08:00→18:00)
[2022-03-22] MEDS: AMLODIPINE 5MG TABLET PO SCH (09:00)
[2022-03-22] MEDS: FOLIC ACID/VITAMIN B COMP W-C TABLET PO SCH (09:00)
[2022-03-22] MEDS: FAMOTIDINE 20MG TABLET PO SCH (09:00)
[2022-03-22] MEDS: GABAPENTIN 100MG CAPSULE PO SCH (09:00)
[2022-03-22] MEDS: LISINOPRIL 40MG TABLET PO SCH (09:30)
[2022-03-22 17:08] LABS: INR 1.1; PROTHROMBIN TIME 11.6 sec (9.6-11.0)
[2022-03-22] MEDS: CEFEPIME 1,000 MG in DEXTROSE 5% WATER 50 ML IV SCH (18:11)
[2022-03-22] MEDS ORDERED: DILTIAZEM HCL 5MG/ML 5ML VIAL IV NR (21:30)
[2022-03-23] VITALS (18 sets, daily range): BP systolic 118–156; BP diastolic 61–102
[2022-03-23] MEDS: IPRATROPIUM BROMIDE (0.02%) 0.5MG/2.5ML NEB HHN SCH ×4 (01:33→20:36)
[2022-03-23] MEDS: ALBUTEROL (0.083%) 2.5MG/3ML NEB HHN SCH ×4 (01:33→20:36)
[2022-03-23 04:15] LABS: BASOPHILS % 0.4 % (0.0-2.0); EOSINOPHILS % 9.9 % (0.0-5.0); HEMATOCRIT. 29.4 % (36.0-48.0); HEMOGLOBIN. 9.9 g/dL (12.0-16.0); LYMPHOCYTES % 7.8 % (20.0-50.0); MEAN CORPUSCULAR HEMOGLOBIN 31.2 pg (28.0-32.0); MEAN CORPUSCULAR VOLUME 92.9 fL (81.0-99.0); MEAN PLATELET VOLUME 7.9 fl (7.4-10.4); MONOCYTES % 12.1 % (2.0-8.0); NEUTROPHILS % 69.8 % (40.0-76.0); PLATELET 147 x1000/uL (130-400); RED BLOOD CELL COUNT 3.16 mill/uL (4.2-5.4); RED CELL DISTRIBUTION WIDTH 16.6 % (11.6-14.6)
[2022-03-23 04:16] LABS: INR 1.1; PROTHROMBIN TIME 11.4 sec (9.6-11.0)
[2022-03-23 04:49] LABS: HEPATITIS B SURFACE ANTIGEN NEGATIVE
[2022-03-23] MEDS: DEXT 5%/0.45% NACL 1000ML 1,000 ML IV SCH ×2 (05:58→18:35)
[2022-03-23 09:08] LABS: BG BASE EXCESS 1.3 mmol/L (-2.0-2.0); BG CARBOXYHEMOGLOBIN 0.5 % (0.5-1.5); BG DEOXYHEMOGLOBIN 1.3 % (0.0-5.0); BG FRACTION INSPIRED OXYGEN 35; BG HCO3 ACT 25.1 mmol/L (22.0-26.0); BG METHEMOGLOBIN 0.3 % (0.0-1.5); BG OXYGEN SATURATION 98.7 % (92.0-98.5); BG OXYHEMOGLOBIN 97.9 % (94.0-97.0); BG PCO2 36.5 mmHg (35.0-45.0); BG PH 7.455 (7.350-7.450); BG PO2 133.6 mmHg (75.0-100.0); BG SAMPLE SITE RIGHT RADIAL; BG TOTAL HEMOGLOBIN 9.9 g/dL (12.0-18.0); BG VENT MODE VENT - AC
[2022-03-23] MEDS: SEVELAMER CARBONATE 800 MG TABLET PO SCH ×3 (12:04→18:35)
[2022-03-23] MEDS: GABAPENTIN 100MG CAPSULE PO SCH (12:04)
[2022-03-23] MEDS: FOLIC ACID/VITAMIN B COMP W-C TABLET PO SCH (12:07)
[2022-03-23] MEDS: DILTIAZEM HCL 60MG TABLET PO SCH ×2 (12:07→18:34)
[2022-03-23] MEDS: FAMOTIDINE 20MG TABLET PO SCH (12:08)
[2022-03-23] MEDS: LISINOPRIL 40MG TABLET PO SCH (12:08)
[2022-03-23] MEDS: AMLODIPINE 5MG TABLET PO SCH ×2 (12:09→20:46)
[2022-03-23] MEDS ORDERED: AMIODARONE HCL 150 MG in DEXT 5% WATER 100 ML IV NR (14:30)
[2022-03-23] MEDS ORDERED: AMIODARONE HCL 900 MG in DEXT 5% WATER 482 ML IV NR (15:00)
[2022-03-23] MEDS: CEFEPIME 1,000 MG in DEXTROSE 5% WATER 50 ML IV SCH (16:20)
[2022-03-23] MEDS: TRAZODONE HCL 50MG TABLET PO SCH ×2 (20:52→21:00)
[2022-03-24] VITALS (18 sets, daily range): BP systolic 110–162; BP diastolic 68–86
[2022-03-24] MEDS: DILTIAZEM HCL 60MG TABLET PO SCH ×4 (00:01→18:39)
[2022-03-24] MEDS: IPRATROPIUM BROMIDE (0.02%) 0.5MG/2.5ML NEB HHN SCH ×4 (01:58→21:06)
[2022-03-24] MEDS: ALBUTEROL (0.083%) 2.5MG/3ML NEB HHN SCH ×4 (01:58→21:06)
[2022-03-24] MEDS ORDERED: LIDOCAINE HCL 1% 30ML VIAL (10MG/ML) ONE (08:35)
[2022-03-24 09:06] LABS: BASOPHILS % 0.5 % (0.0-2.0); EOSINOPHILS % 11.4 % (0.0-5.0); HEMATOCRIT. 28.1 % (36.0-48.0); HEMOGLOBIN. 9.5 g/dL (12.0-16.0); LYMPHOCYTES % 7.8 % (20.0-50.0); MEAN CORPUSCULAR HEMOGLOBIN 31.6 pg (28.0-32.0); MEAN CORPUSCULAR VOLUME 93.6 fL (81.0-99.0); MEAN PLATELET VOLUME 7.9 fl (7.4-10.4); MONOCYTES % 9.7 % (2.0-8.0); NEUTROPHILS % 70.6 % (40.0-76.0); PLATELET 142 x1000/uL (130-400); RED CELL DISTRIBUTION WIDTH 16.7 % (11.6-14.6)
[2022-03-24 09:16] LABS: BG BASE EXCESS -1.4 mmol/L (-2.0-2.0); BG CARBOXYHEMOGLOBIN 1.3 % (0.5-1.5); BG FRACTION INSPIRED OXYGEN 30; BG HCO3 ACT 22.6 mmol/L (22.0-26.0); BG METHEMOGLOBIN 0.3 % (0.0-1.5); BG OXYHEMOGLOBIN 95.4 % (94.0-97.0); BG PH 7.428 (7.350-7.450); BG PO2 87.6 mmHg (75.0-100.0); BG SAMPLE SITE RIGHT RADIAL; BG TOTAL HEMOGLOBIN 10.1 g/dL (12.0-18.0); BG TOTAL RESPIRATORY RATE 19 b/min; BG VENT MODE VENT - AC
[2022-03-24 09:33] LABS: PHOSPHORUS 5.3 mg/dL (2.5-4.9)
[2022-03-24] MEDS: AMIODARONE HCL 200 MG TABLET PO SCH ×2 (09:52→22:43)
[2022-03-24] MEDS: FOLIC ACID/VITAMIN B COMP W-C TABLET PO SCH (09:52)
[2022-03-24] MEDS: GABAPENTIN 100MG CAPSULE PO SCH (09:52)
[2022-03-24] MEDS: FAMOTIDINE 20MG TABLET PO SCH (09:54)
[2022-03-24] MEDS: LISINOPRIL 40MG TABLET PO SCH (09:54)
[2022-03-24] MEDS: AMLODIPINE 5MG TABLET PO SCH ×2 (09:54→22:42)
[2022-03-24] MEDS: SEVELAMER CARBONATE 800 MG TABLET PO SCH ×3 (14:13→18:38)
[2022-03-24] MEDS: DEXT 5%/0.45% NACL 1000ML 1,000 ML IV SCH ×2 (19:14→22:40)
[2022-03-24] MEDS: TRAZODONE HCL 50MG TABLET PO SCH (22:41)
[2022-03-25] VITALS (11 sets, daily range): BP systolic 122–171; BP diastolic 70–108
[2022-03-25] MEDS: DILTIAZEM HCL 60MG TABLET PO SCH ×4 (01:06→17:11)
[2022-03-25] MEDS: CEFEPIME 1,000 MG in DEXTROSE 5% WATER 50 ML IV SCH ×2 (01:09→17:11)
[2022-03-25] MEDS: IPRATROPIUM BROMIDE (0.02%) 0.5MG/2.5ML NEB HHN SCH (01:40)
[2022-03-25] MEDS: ALBUTEROL (0.083%) 2.5MG/3ML NEB HHN SCH (01:40)
[2022-03-25 06:42] LABS: HEMATOCRIT. 26.6 % (36.0-48.0); MEAN CORPUSCULAR HEMOGLOBIN 31.8 pg (28.0-32.0); MEAN CORPUSCULAR VOLUME 93.3 fL (81.0-99.0); PLATELET 145 x1000/uL (130-400); RED BLOOD CELL COUNT 2.85 mill/uL (4.2-5.4); RED CELL DISTRIBUTION WIDTH 16.3 % (11.6-14.6)
[2022-03-25 08:15] LABS: PLATELET ESTIMATE NORMAL
[2022-03-25] MEDS: FOLIC ACID/VITAMIN B COMP W-C TABLET PO SCH (08:42)
[2022-03-25] MEDS: SEVELAMER CARBONATE 800 MG TABLET PO SCH ×3 (08:42→17:11)
[2022-03-25] MEDS: DEXT 5%/0.45% NACL 1000ML 1,000 ML IV SCH (08:43)
[2022-03-25] MEDS: FAMOTIDINE 20MG TABLET PO SCH (08:43)
[2022-03-25] MEDS: AMLODIPINE 5MG TABLET PO SCH ×2 (08:43→21:11)
[2022-03-25] MEDS: LISINOPRIL 40MG TABLET PO SCH (08:43)
[2022-03-25] MEDS: AMIODARONE HCL 200 MG TABLET PO SCH ×2 (08:43→21:00)
[2022-03-25] MEDS: GABAPENTIN 100MG CAPSULE PO SCH (08:43)
[2022-03-25 08:47] LABS: BG BASE EXCESS 2.1 mmol/L (-2.0-2.0); BG CARBOXYHEMOGLOBIN 1.3 % (0.5-1.5); BG DEOXYHEMOGLOBIN 7.4 % (0.0-5.0); BG FRACTION INSPIRED OXYGEN 30; BG METHEMOGLOBIN 0.3 % (0.0-1.5); BG OXYGEN SATURATION 92.5 % (92.0-98.5); BG PCO2 37.6 mmHg (35.0-45.0); BG PH 7.458 (7.350-7.450); BG PO2 59.6 mmHg (75.0-100.0); BG SAMPLE SITE LEFT RADIAL; BG TOTAL RESPIRATORY RATE 23 b/min; BG VENT MODE VENT - SIMV
[2022-03-25] MEDS ORDERED: NALOXONE HCL 0.4MG/ML VIAL IV PRN (16:30)
[2022-03-25] MEDS: TRAZODONE HCL 50MG TABLET PO SCH (21:12)
[2022-03-26] VITALS (24 sets, daily range): BP systolic 131–165; BP diastolic 64–91
[2022-03-26] MEDS: DILTIAZEM HCL 60MG TABLET PO SCH ×4 (00:34→17:08)
[2022-03-26 06:08] LABS: BASOPHILS % 0.4 % (0.0-2.0); EOSINOPHILS % 10.7 % (0.0-5.0); HEMATOCRIT. 25.5 % (36.0-48.0); HEMOGLOBIN. 8.6 g/dL (12.0-16.0); LYMPHOCYTES % 7.7 % (20.0-50.0); MEAN CORPUSCULAR HEMOGLOBIN 31.4 pg (28.0-32.0); MEAN CORPUSCULAR VOLUME 92.8 fL (81.0-99.0); MEAN PLATELET VOLUME 8.1 fl (7.4-10.4); MONOCYTES % 9.3 % (2.0-8.0); NEUTROPHILS % 71.9 % (40.0-76.0); PLATELET 156 x1000/uL (130-400); RED BLOOD CELL COUNT 2.75 mill/uL (4.2-5.4); RED CELL DISTRIBUTION WIDTH 16.2 % (11.6-14.6)
[2022-03-26 06:13] LABS: INR 1.1; PROTHROMBIN TIME 11.9 sec (9.6-11.0)
[2022-03-26 06:38] LABS: PHOSPHORUS 3.7 mg/dL (2.5-4.9)
[2022-03-26] MEDS: FAMOTIDINE 20MG TABLET PO SCH (08:37)
[2022-03-26] MEDS: SEVELAMER CARBONATE 800 MG TABLET PO SCH ×3 (08:37→17:08)
[2022-03-26] MEDS: FOLIC ACID/VITAMIN B COMP W-C TABLET PO SCH (08:37)
[2022-03-26] MEDS: AMIODARONE HCL 200 MG TABLET PO SCH ×2 (08:37→22:00)
[2022-03-26] MEDS: LISINOPRIL 40MG TABLET PO SCH (08:37)
[2022-03-26] MEDS: AMLODIPINE 5MG TABLET PO SCH ×2 (08:38→22:00)
[2022-03-26] MEDS: GABAPENTIN 100MG CAPSULE PO SCH (08:38)
[2022-03-26 09:16] LABS: BG BASE EXCESS 0.7 mmol/L (-2.0-2.0); BG CARBOXYHEMOGLOBIN 1.1 % (0.5-1.5); BG DEOXYHEMOGLOBIN 1.4 % (0.0-5.0); BG FRACTION INSPIRED OXYGEN 40; BG HCO3 ACT 24.6 mmol/L (22.0-26.0); BG METHEMOGLOBIN 0.4 % (0.0-1.5); BG OXYGEN SATURATION 98.6 % (92.0-98.5); BG OXYHEMOGLOBIN 97.1 % (94.0-97.0); BG PCO2 36.7 mmHg (35.0-45.0); BG PH 7.445 (7.350-7.450); BG PO2 129.1 mmHg (75.0-100.0); BG SAMPLE SITE LEFT RADIAL; BG TOTAL HEMOGLOBIN 9.4 g/dL (12.0-18.0); BG VENT MODE VENT - SIMV
[2022-03-26] MEDS ORDERED: IPRATROPIUM/ALBUTEROL 0.5-3(2.5)MG/3ML NEB HHN PRN (13:00)
[2022-03-26] MEDS ORDERED: ALBUTEROL (0.083%) 2.5MG/3ML NEB HHN PRN (13:15)
[2022-03-26] MEDS ORDERED: IPRATROPIUM BROMIDE (0.02%) 0.5MG/2.5ML NEB HHN PRN (13:15)
[2022-03-26] MEDS: CEFEPIME 1,000 MG in DEXTROSE 5% WATER 50 ML IV SCH (16:29)
[2022-03-26] MEDS ORDERED: IPRATROPIUM/ALBUTEROL 0.5-3(2.5)MG/3ML NEB HHN SCH (18:00)
[2022-03-26] MEDS: IPRATROPIUM BROMIDE (0.02%) 0.5MG/2.5ML NEB HHN SCH (20:44)
[2022-03-26] MEDS: ALBUTEROL (0.083%) 2.5MG/3ML NEB HHN SCH (20:45)
[2022-03-26] MEDS: TRAZODONE HCL 50MG TABLET PO SCH (22:00)
[2022-03-26] MEDS: EPOETIN ALFA-EPBX 4,000 UNIT/ML VIAL SUBCUT SCH (22:00)
[2022-03-27] VITALS (11 sets, daily range): BP systolic 132–183; BP diastolic 64–83
[2022-03-27] MEDS: DILTIAZEM HCL 60MG TABLET PO SCH ×4 (00:37→18:12)
[2022-03-27] MEDS: ALBUTEROL (0.083%) 2.5MG/3ML NEB HHN SCH ×4 (01:47→20:03)
[2022-03-27] MEDS: IPRATROPIUM BROMIDE (0.02%) 0.5MG/2.5ML NEB HHN SCH ×4 (01:47→20:03)
[2022-03-27 06:09] LABS: BASOPHILS % 0.3 % (0.0-2.0); HEMATOCRIT. 25.4 % (36.0-48.0); HEMOGLOBIN. 8.6 g/dL (12.0-16.0); LYMPHOCYTES % 7.4 % (20.0-50.0); MEAN CORPUSCULAR HEMOGLOBIN 31.5 pg (28.0-32.0); MEAN PLATELET VOLUME 7.9 fl (7.4-10.4); MONOCYTES % 10.9 % (2.0-8.0); NEUTROPHILS % 73.4 % (40.0-76.0); PLATELET 152 x1000/uL (130-400); RED BLOOD CELL COUNT 2.74 mill/uL (4.2-5.4); RED CELL DISTRIBUTION WIDTH 16.4 % (11.6-14.6)
[2022-03-27 06:15] LABS: INR 1.1; PROTHROMBIN TIME 11.7 sec (9.6-11.0)
[2022-03-27] MEDS: SEVELAMER CARBONATE 800 MG TABLET PO SCH ×3 (07:54→18:10)
[2022-03-27 08:17] LABS: BG BASE EXCESS 1.3 mmol/L (-2.0-2.0); BG CARBOXYHEMOGLOBIN 1.1 % (0.5-1.5); BG HCO3 ACT 25.3 mmol/L (22.0-26.0); BG METHEMOGLOBIN 0.3 % (0.0-1.5); BG OXYHEMOGLOBIN 96.6 % (94.0-97.0); BG PCO2 37.7 mmHg (35.0-45.0); BG PH 7.445 (7.350-7.450); BG PO2 102.3 mmHg (75.0-100.0); BG SAMPLE SITE LEFT RADIAL; BG TOTAL HEMOGLOBIN 8.9 g/dL (12.0-18.0); BG VENT MODE VENT - SIMV
[2022-03-27] MEDS: FOLIC ACID/VITAMIN B COMP W-C TABLET PO SCH (09:14)
[2022-03-27] MEDS: GABAPENTIN 100MG CAPSULE PO SCH (09:14)
[2022-03-27] MEDS: FAMOTIDINE 20MG TABLET PO SCH (09:14)
[2022-03-27] MEDS: AMLODIPINE 5MG TABLET PO SCH ×2 (09:15→22:17)
[2022-03-27] MEDS: LISINOPRIL 40MG TABLET PO SCH (09:15)
[2022-03-27] MEDS: AMIODARONE HCL 200 MG TABLET PO SCH ×2 (09:50→22:17)
[2022-03-27] MEDS: CEFEPIME 1,000 MG in DEXTROSE 5% WATER 50 ML IV SCH (18:06)
[2022-03-27] MEDS: TRAZODONE HCL 50MG TABLET PO SCH (22:17)
[2022-03-28] VITALS (24 sets, daily range): BP systolic 120–156; BP diastolic 63–104
[2022-03-28] MEDS: IPRATROPIUM BROMIDE (0.02%) 0.5MG/2.5ML NEB HHN SCH ×4 (01:45→20:23)
[2022-03-28] MEDS: ALBUTEROL (0.083%) 2.5MG/3ML NEB HHN SCH ×4 (01:45→20:23)
[2022-03-28 05:56] LABS: INR 1.1; PROTHROMBIN TIME 11.7 sec (9.6-11.0)
[2022-03-28 06:15] LABS: BASOPHILS % 0.4 % (0.0-2.0); EOSINOPHILS % 7.5 % (0.0-5.0); HEMATOCRIT. 24.9 % (36.0-48.0); HEMOGLOBIN. 8.5 g/dL (12.0-16.0); LYMPHOCYTES % 7.3 % (20.0-50.0); MEAN CORPUSCULAR HEMOGLOBIN 31.7 pg (28.0-32.0); MEAN CORPUSCULAR VOLUME 92.7 fL (81.0-99.0); MEAN PLATELET VOLUME 7.5 fl (7.4-10.4); MONOCYTES % 9.3 % (2.0-8.0); NEUTROPHILS % 75.5 % (40.0-76.0); PLATELET 159 x1000/uL (130-400); RED BLOOD CELL COUNT 2.68 mill/uL (4.2-5.4); RED CELL DISTRIBUTION WIDTH 16.3 % (11.6-14.6)
[2022-03-28] MEDS: DILTIAZEM HCL 60MG TABLET PO SCH ×4 (06:41→20:06)
[2022-03-28] MEDS: AMIODARONE HCL 200 MG TABLET PO SCH ×2 (09:55→21:04)
[2022-03-28] MEDS: FAMOTIDINE 20MG TABLET PO SCH (09:55)
[2022-03-28] MEDS: SEVELAMER CARBONATE 800 MG TABLET PO SCH ×3 (09:55→17:00)
[2022-03-28] MEDS: GABAPENTIN 100MG CAPSULE PO SCH (09:55)
[2022-03-28] MEDS: LISINOPRIL 40MG TABLET PO SCH (09:55)
[2022-03-28] MEDS: FOLIC ACID/VITAMIN B COMP W-C TABLET PO SCH (09:55)
[2022-03-28] MEDS: AMLODIPINE 5MG TABLET PO SCH ×2 (09:58→21:06)
[2022-03-28] MEDS ORDERED: LIDOCAINE HCL 1% 10 MG/ML 10ML VIAL ONE (09:59)
[2022-03-28] MEDS ORDERED: IOHEXOL-300 50 ML BOTTLE IV ONE (09:59)
[2022-03-28] MEDS ORDERED: FENTANYL CITRATE/PF 50MCG/ML 2ML VIAL ONE (10:49)
[2022-03-28] MEDS ORDERED: MIDAZOLAM HCL 2 MG/2 ML VIAL ONE (10:50)
[2022-03-28] MEDS ORDERED: FENTANYL CITRATE/PF 50MCG/ML 2ML VIAL IV ONE (11:15)
[2022-03-28] MEDS ORDERED: MIDAZOLAM HCL 2 MG/2 ML VIAL IV ONE (11:15)
[2022-03-28] MEDS ORDERED: HEPARIN 1000 UNITS/ML 10ML ONE (11:22)
[2022-03-28] MEDS: CEFEPIME 1,000 MG in DEXTROSE 5% WATER 50 ML IV SCH (17:32)
[2022-03-28] MEDS: TRAZODONE HCL 50MG TABLET PO SCH (21:06)
[2022-03-28] MEDS: EPOETIN ALFA-EPBX 4,000 UNIT/ML VIAL SUBCUT SCH (21:12)
[2022-03-29] VITALS (24 sets, daily range): BP systolic 118–153; BP diastolic 54–94
[2022-03-29] MEDS: DILTIAZEM HCL 60MG TABLET PO SCH ×4 (00:19→18:29)
[2022-03-29] MEDS: ALBUTEROL (0.083%) 2.5MG/3ML NEB HHN SCH ×4 (01:46→21:07)
[2022-03-29] MEDS: IPRATROPIUM BROMIDE (0.02%) 0.5MG/2.5ML NEB HHN SCH ×4 (01:46→21:07)
[2022-03-29 06:14] LABS: HEMATOCRIT. 24.1 % (36.0-48.0); HEMOGLOBIN. 8.3 g/dL (12.0-16.0); MEAN CORPUSCULAR HEMOGLOBIN 31.7 pg (28.0-32.0); MEAN CORPUSCULAR VOLUME 92.6 fL (81.0-99.0); MEAN PLATELET VOLUME 7.8 fl (7.4-10.4); PLATELET 151 x1000/uL (130-400); RED BLOOD CELL COUNT 2.61 mill/uL (4.2-5.4); RED CELL DISTRIBUTION WIDTH 16.5 % (11.6-14.6)
[2022-03-29 06:26] LABS: INR 1.1; PROTHROMBIN TIME 11.8 sec (9.6-11.0)
[2022-03-29] MEDS: GABAPENTIN 100MG CAPSULE PO SCH (08:36)
[2022-03-29] MEDS: AMIODARONE HCL 200 MG TABLET PO SCH ×2 (08:36→21:42)
[2022-03-29] MEDS: FAMOTIDINE 20MG TABLET PO SCH (08:36)
[2022-03-29] MEDS: FOLIC ACID/VITAMIN B COMP W-C TABLET PO SCH (08:36)
[2022-03-29] MEDS: SEVELAMER CARBONATE 800 MG TABLET PO SCH ×3 (08:37→18:29)
[2022-03-29] MEDS: AMLODIPINE 5MG TABLET PO SCH ×2 (09:00→21:43)
[2022-03-29] MEDS: LISINOPRIL 40MG TABLET PO SCH (09:00)
[2022-03-29 12:04] LABS: PLATELET ESTIMATE NORMAL
[2022-03-29] MEDS: CEFEPIME 1,000 MG in DEXTROSE 5% WATER 50 ML IV SCH (18:01)
[2022-03-29] MEDS: TRAZODONE HCL 50MG TABLET PO SCH (21:42)
[2022-03-30] VITALS: BP 124/72
[2022-03-30] MEDS: DILTIAZEM HCL 60MG TABLET PO SCH ×2 (00:37→05:41)
[2022-03-30] MEDS: ALBUTEROL (0.083%) 2.5MG/3ML NEB HHN SCH ×2 (01:00→08:10)
[2022-03-30] MEDS: IPRATROPIUM BROMIDE (0.02%) 0.5MG/2.5ML NEB HHN SCH ×2 (01:00→08:10)
[2022-03-30 02:00] VITALS: BP 141/69
[2022-03-30 04:00] VITALS: BP 133/62
[2022-03-30 06:00] VITALS: BP 146/59
[2022-03-30 06:53] LABS: INR 1.1; PROTHROMBIN TIME 12.2 sec (9.6-11.0)
[2022-03-30 07:32] LABS: BASOPHILS % 0.5 % (0.0-2.0); HEMATOCRIT. 23.6 % (36.0-48.0); HEMOGLOBIN. 8.1 g/dL (12.0-16.0); LYMPHOCYTES % 7.7 % (20.0-50.0); MEAN CORPUSCULAR HEMOGLOBIN 31.8 pg (28.0-32.0); MEAN CORPUSCULAR VOLUME 92.6 fL (81.0-99.0); MEAN PLATELET VOLUME 7.8 fl (7.4-10.4); MONOCYTES % 11.3 % (2.0-8.0); NEUTROPHILS % 71.5 % (40.0-76.0); PLATELET 141 x1000/uL (130-400); RED BLOOD CELL COUNT 2.55 mill/uL (4.2-5.4); RED CELL DISTRIBUTION WIDTH 16.7 % (11.6-14.6)
[2022-03-30 08:00] VITALS: BP 140/65
[2022-03-30] MEDS: GABAPENTIN 100MG CAPSULE PO SCH (08:04)
[2022-03-30] MEDS: AMIODARONE HCL 200 MG TABLET PO SCH (08:04)
[2022-03-30] MEDS: SEVELAMER CARBONATE 800 MG TABLET PO SCH (08:04)
[2022-03-30] MEDS: LISINOPRIL 40MG TABLET PO SCH (08:04)
[2022-03-30] MEDS: AMLODIPINE 5MG TABLET PO SCH (08:05)
[2022-03-30] MEDS: FAMOTIDINE 20MG TABLET PO SCH (08:05)
[2022-03-30] MEDS: FOLIC ACID/VITAMIN B COMP W-C TABLET PO SCH (08:05)
[2022-03-30 10:00] VITALS: BP 130/67
== END 2022-03-30 15:00 | DRG 252 ==
LOC: 5EST 18:22
PROVIDERS: ADMIT Family Medicine Adult Medicine; ATTEND Family Medicine Adult Medicine
PROC: 5A1955Z Respiratory Ventilation, Greater than 96 Consecutive Hours (ICD-10-PCS; 2022-03-19)
PROC: 30233N1 Transfusion of Nonautologous Red Blood Cells into Peripheral Vein, Percutaneous Approach (ICD-10-PCS; 2022-03-19)
PROC: 5A1D70Z Performance of Urinary Filtration, Intermittent, Less than 6 Hours Per Day (ICD-10-PCS; 2022-03-19)
PROC: 5A1D70Z Performance of Urinary Filtration, Intermittent, Less than 6 Hours Per Day (ICD-10-PCS; 2022-03-19)
PROC: 5A1D70Z Performance of Urinary Filtration, Intermittent, Less than 6 Hours Per Day (ICD-10-PCS; 2022-03-19)
PROC: 5A1D70Z Performance of Urinary Filtration, Intermittent, Less than 6 Hours Per Day (ICD-10-PCS; 2022-03-19)
PROC: 5A1D70Z Performance of Urinary Filtration, Intermittent, Less than 6 Hours Per Day (ICD-10-PCS; 2022-03-19)
PROC: 03170ZD Bypass Right Brachial Artery to Upper Arm Vein, Open Approach (ICD-10-PCS; principal; 2022-03-21)
PROC: 03CY0ZZ Extirpation of Matter from Upper Artery, Open Approach (ICD-10-PCS; 2022-03-21)
PROC: 05CY0ZZ Extirpation of Matter from Upper Vein, Open Approach (ICD-10-PCS; 2022-03-21)
PROC: 02HV33Z Insertion of Infusion Device into Superior Vena Cava, Percutaneous Approach (ICD-10-PCS; 2022-03-24)
PROC: B548ZZA Ultrasonography of Superior Vena Cava, Guidance (ICD-10-PCS; 2022-03-24)
PROC: B51W1ZZ Fluoroscopy of Dialysis Shunt/Fistula using Low Osmolar Contrast (ICD-10-PCS; 2022-03-28)
PROC: B5181ZZ Fluoroscopy of Superior Vena Cava using Low Osmolar Contrast (ICD-10-PCS; 2022-03-28)
DX: T82.7XXA Infection and inflammatory reaction due to other cardiac and vascular devices, implants and grafts, initial encounter (principal); E43 Unspecified severe protein-calorie malnutrition; L89.153 Pressure ulcer of sacral region, stage 3; N18.6 End stage renal disease; T82.510A Breakdown (mechanical) of surgically created arteriovenous fistula, initial encounter; I12.0 Hypertensive chronic kidney disease with stage 5 chronic kidney disease or end stage renal disease; J96.10 Chronic respiratory failure, unspecified whether with hypoxia or hypercapnia; G93.40 Encephalopathy, unspecified; M30.0 Polyarteritis nodosa; I42.0 Dilated cardiomyopathy; R18.8 Other ascites; Z99.11 Dependence on respirator [ventilator] status; K94.23 Gastrostomy malfunction; T82.838A Hemorrhage due to vascular prosthetic devices, implants and grafts, initial encounter; D63.1 Anemia in chronic kidney disease; E83.39 Other disorders of phosphorus metabolism; E11.22 Type 2 diabetes mellitus with diabetic chronic kidney disease; S70.11XA Contusion of right thigh, initial encounter; R13.12 Dysphagia, oropharyngeal phase; K80.20 Calculus of gallbladder without cholecystitis without obstruction; I48.0 Paroxysmal atrial fibrillation; E11.51 Type 2 diabetes mellitus with diabetic peripheral angiopathy without gangrene; K74.60 Unspecified cirrhosis of liver; S30.1XXA Contusion of abdominal wall, initial encounter; Y71.2 Prosthetic and other implants, materials and accessory cardiovascular devices associated with adverse incidents; Y83.2 Surgical operation with anastomosis, bypass or graft as the cause of abnormal reaction of the patient, or of later complication, without mention of misadventure at the time of the procedure; Y84.1 Kidney dialysis as the cause of abnormal reaction of the patient, or of later complication, without mention of misadventure at the time of the procedure; X58.XXXA Exposure to other specified factors, initial encounter; Y92.89 Other specified places as the place of occurrence of the external cause; Z86.718 Personal history of other venous thrombosis and embolism; Z99.2 Dependence on renal dialysis; Z93.0 Tracheostomy status; Z86.73 Personal history of transient ischemic attack (TIA), and cerebral infarction without residual deficits; I25.2 Old myocardial infarction; Z79.899 Other long term (current) drug therapy; Y93.89 Activity, other specified; Y99.8 Other external cause status
CPT/HCPCS: 36415; 36573; 36600; 36901; 71045; 73706; 76700; 76937; 80048; 80053; 80061; 80069; 80076; 82040; 82375; 82550; 82607; 82728; 82805; 82962; 83036; 83540; 83550; 83735; 84100; 84134; 84145; 84443; 84484; 85025; 86705; 86709; 86803; 86850; 86900; 86920; 87340; 87426; 90935; 93005; 93306; 93922; 93970; 94002; 94003; 94640; 99152; 99153; C1725; C1887; J0282; J0360; J0690; J0692; J0885; J1644; J2250; J2270; J3010; J3490; J7060; P9016; Q9967; G0500